=== PATIENT | female | born 1990 | race Caucasian/White ===

== ENCOUNTER 2020-09-24 12:36 | Emergency (ER) | payer OTHER, SELFPAY ==
--- NOTE | 2020-09-24 16:18 | ER ---
Nurse's Notes [facility] Name: Melva Gottlieb Age: 30 yrs Sex: Female : 1990 Arrival Date: 09/24/2020 Time: 12:41 Bed 30 Private MD: Diagnosis: Female pelvic inflammatory disease, unspecified Presentation: 09/24 13:02 Chief complaint: Patient states: Cramping, foul odor to vaginal area with white ll1 discharge for 2 days. States she thinks she may have left a tampon in since her last period at the end of August. No fever. Coronavirus screen: Client denies travel out of the [place] in the last 14 days. At this time, the client does not indicate any symptoms associated with coronavirus-19. Ebola Screen: Patient denies travel to an Ebola-affected area in the 21 days before illness onset. Initial Sepsis Screen: Does the patient meet any 2 criteria? HR > 90 bpm. No. Patient's initial sepsis screen is negative. Does the patient have a suspected source of infection? Yes: Acute abdominal pain. Risk Assessment: Do you want to hurt yourself or someone else? Patient reports no desire to harm self or others. Onset of symptoms was September 23, 2020. 13:02 Method Of Arrival: Ambulatory ll1 13:02 Acuity: SANDRA 4 ll1 Historical: - Allergies: 13:06 Codeine; ll1 13:06 Pineapple; ll1 - PMHx: 13:06 None; ll1 - PSHx: 13:06 Tubal ligation; ll1 - Immunization history:: Flu vaccine is not up to date. - Social history:: Smoking status: Patient reports the use of cigarette tobacco products, smokes one-half pack cigarettes per day. Screenin:19 Abuse screen: Denies threats or abuse. Denies injuries from another. Nutritional iw screening: No deficits noted. Tuberculosis screening: No symptoms or risk factors identified. Fall Risk None identified. Assessment: 15:19 General: Appears in no apparent distress. Behavior is calm, cooperative. Pain: iw Complains of pain in pelvis. Neuro: Level of Consciousness is awake, alert, obeys commands, Oriented to person, place, time, situation. Cardiovascular: Patient's skin is warm and dry. Respiratory: Respiratory effort is even, unlabored, Respiratory pattern is regular. : Reports discharge, from vagina that is white, yellow. Derm: Skin is intact, is healthy with good turgor. Musculoskeletal: Range of motion: intact in all extremities. Vital Signs: 13:02 BP 139 / 58; Pulse 114; Resp 16; Temp 98.3; Pulse Ox 96% ; Weight 92.99 kg; Height 5 ll1 ft. 7 in. (170.18 cm); Pain 7/10; 14:31 BP 124 / 78; Pulse 94; Resp 16; ll1 13:02 Body Mass Index 32.11 (92.99 kg, 170.18 cm) ll1 ED Course: 12:41 Patient arrived in ED. ds1 13:04 Triage completed. ll1 13:06 Arm band placed on. ll1 14:47 Adam Mcpherson PA is PHCP. jr8 14:47 Konrad Schneider MD is Attending Physician. jr8 15:09 Eboni Villareal, RN is Primary Nurse. iw 15:19 Assist provider with pelvic exam: Set up pelvic tray. Performed by Adam IRWIN iw Specimens sent to lab. Patient tolerated well. Patient did not have IV access during this emergency room visit. 15:20 Patient has correct armband on for positive identification. iw Administered Medications: 16:25 Drug: Rocephin (cefTRIAXone) 500 mg Route: IM; Site: left ventrogluteal; iw 16:39 Drug: Zithromax 1 grams Route: PO; iw Outcome: 16:17 Discharge ordered by . jr8 16:41 Discharged to home ambulatory. iw 16:41 Condition: good 16:41 Discharge instructions given to patient, Instructed on discharge instructions, follow up and referral plans. medication usage, Demonstrated understanding of instructions, follow-up care, medications, Prescriptions given X 1. 16:42 Patient left the ED. iw Signatures: Pam Florentino ds1 Eboni Villareal RN RN iw Adam Mcpherson PA PA jr8 Wilma Amezcua RN RN ll1 Corrections: (The following items were deleted from the chart) 13:06 13:06 Social history: Smoking status: Patient denies any tobacco usage or history of. ll1 ll1
--- NOTE | 2020-09-24 16:18 | EDPHYS ---
Physician Documentation [facility] Name: Melva Gottlieb Age: 30 yrs Sex: Female : 1990 Arrival Date: 09/24/2020 Time: 12:41 Bed 30 Private MD: KEVIN Physician Konrad Schneider HPI: 09/24 15:14 This 30 yrs old Female presents to ER via Ambulatory with complaints of jr8 Possible Foreign body In Vagina. 15:14 Onset: The symptoms/episode began/occurred acutely, yesterday. Modifying factors: The jr8 symptoms are alleviated by nothing, the symptoms are aggravated by nothing. Associated signs and symptoms: Pertinent positives: cramping. Severity of symptoms: At their worst the symptoms were mild, in the emergency department the symptoms are unchanged. The patient is sexually active, reportedly has a single partner, does not use protection during intercourse. The patient's method of control includes tubal ligation. The patient has not experienced similar symptoms in the past. The patient has not recently seen a physician. Patient stated that she has been having white discharge and lower abdominal cramping. Smells "mildew" like in her vaginal region. Concerned that she may have forgot a tampon but unsure . Historical: - Allergies: 13:06 Codeine; ll1 13:06 Pineapple; ll1 - PMHx: 13:06 None; ll1 - PSHx: 13:06 Tubal ligation; ll1 - Immunization history:: Flu vaccine is not up to date. - Social history:: Smoking status: Patient reports the use of cigarette tobacco products, smokes one-half pack cigarettes per day. ROS: 15:14 Eyes: Negative for injury, pain, redness, and discharge, ENT: Negative for injury, jr8 pain, and discharge, Neck: Negative for injury, pain, and swelling, Cardiovascular: Negative for chest pain, palpitations, and edema, Respiratory: Negative for shortness of breath, cough, wheezing, and pleuritic chest pain, Abdomen/GI: Negative for abdominal pain, nausea, vomiting, diarrhea, and constipation, Back: Negative for injury and pain, MS/Extremity: Negative for injury and deformity, Skin: Negative for injury, rash, and discoloration, Neuro: Negative for headache, weakness, numbness, tingling, and seizure. 15:14 Constitutional: Negative for fever. 15:14 : Positive for pelvic pain, vaginal discharge. Exam: 15:14 Constitutional: This is a well developed, well nourished patient who is awake, alert, jr8 and in no acute distress. Cardiovascular: Regular rate and rhythm with a normal S1 and S2. No gallops, murmurs, or rubs. Normal PMI, no JVD. No pulse deficits. Respiratory: Lungs have equal breath sounds bilaterally, clear to auscultation and percussion. No rales, rhonchi or wheezes noted. No increased work of breathing, no retractions or nasal flaring. Abdomen/GI: Soft, non-tender, with normal bowel sounds. No distension or tympany. No guarding or rebound. No evidence of tenderness throughout. Back: No spinal tenderness. No costovertebral tenderness. Full range of motion. Skin: Warm, dry with normal turgor. Normal color with no rashes, no lesions, and no evidence of cellulitis. MS/ Extremity: Pulses equal, no cyanosis. Neurovascular intact. Full, normal range of motion. Neuro: Awake and alert, GCS 15, oriented to person, place, time, and situation. Cranial nerves II-XII grossly intact. Motor strength 5/5 in all extremities. Sensory grossly intact. 15:14 : Pelvic Exam: External exam: is normal, no appreciated Bartholin's cyst, no erythema, not excoriated, no evidence of foreign body, no lesions, no ulcerations, no warts seen, Speculum exam: no bleeding is noted, no cervicitis, os that is closed, no tissue in cervix is seen, no tissue in vagina is seen, discharge, white, yellow, the nurse was present for the exam. Vital Signs: 13:02 BP 139 / 58; Pulse 114; Resp 16; Temp 98.3; Pulse Ox 96% ; Weight 92.99 kg; Height 5 ll1 ft. 7 in. (170.18 cm); Pain 7/10; 14:31 BP 124 / 78; Pulse 94; Resp 16; ll1 13:02 Body Mass Index 32.11 (92.99 kg, 170.18 cm) ll1 MDM: 14:47 Patient medically screened. jr8 16:15 Data reviewed: vital signs, nurses notes, lab test result(s). Data interpreted: Pulse jr8 oximetry: on room air is 96 %. Interpretation: normal. Counseling: I had a detailed discussion with the patient and/or guardian regarding: the historical points, exam findings, and any diagnostic results supporting the discharge/admit diagnosis, lab results, the need for outpatient follow up, a family practitioner, to return to the emergency department if symptoms worsen or persist or if there are any questions or concerns that arise at home. ED course: Discussed with patient that there was WBC on wet prep but no other significant finding. Concern for GC with PID based on exam. Will treat as such and needs to f/u with OB or PCP. If worse to come back. No intercourse and significant other needs to be checked as well. Patient good with this . 09/24 15:03 Order name: Wet Prep; Complete Time: 16:14 jr8 09/24 15:03 Order name: GC (GONORR/CHLAMYDIA) Probe jr8 Administered Medications: 16:25 Drug: Rocephin (cefTRIAXone) 500 mg Route: IM; Site: left ventrogluteal; iw 16:39 Drug: Zithromax 1 grams Route: PO; iw Disposition: 09/25 05:43 Co-signature as Attending Physician, Konrad Schneider MD I agree with the assessment and evita plan of care. Disposition: 09/24/20 16:17 Discharged to Home. Impression: Female pelvic inflammatory disease, unspecified. - Condition is Stable. - Discharge Instructions: Cervicitis, Pelvic Inflammatory Disease, Sexually Transmitted Disease. - Prescriptions for Doxycycline Monohydrate 100 mg Oral Tablet - take 1 tablet by ORAL route every 12 hours for 14 days; 28 tablet. - Medication Reconciliation Form, Thank You Letter, Antibiotic Education, Prescription Opioid Use form. - Follow up: Private Physician; When: 5 - 6 days; Reason: Recheck today's complaints, Continuance of care, Re-evaluation by your physician. - Problem is new. - Symptoms are unchanged. Signatures: Dispatcher [employer] Konrad Marie MD MD cha Williams, Irene, RN RN Adam Mcpherson PA PA jr8 Wilma Amezcua RN RN ll1 Corrections: (The following items were deleted from the chart) 09/24 13:06 13:06 Social history: Smoking status: Patient denies any tobacco usage or history of. ll1 ll1 16:42 16:17 09/24/2020 16:17 Discharged to Home. Impression: Female pelvic inflammatory iw disease, unspecified. Condition is Stable. Forms are Medication Reconciliation Form, Thank You Letter, Antibiotic Education, Prescription Opioid Use. Follow up: Private Physician; When: 5 - 6 days; Reason: Recheck today's complaints, Continuance of care, Re-evaluation by your physician. Problem is new. Symptoms are unchanged. jr8
[2020-09-24] MEDS ORDERED: CEFTRIAXONE 500 MG/VIAL ONE (16:41)
[2020-09-24] MEDS ORDERED: AZITHROMYCIN 250 MG TAB ONE (16:41)
[2020-09-24] MEDS ORDERED: LIDOCAINE 1% MPF 5 ML VIAL ONE (16:41)
[2020-09-24 17:14] VITALS: TEMP 98.3; O2SAT 96
[2020-09-24 17:16] VITALS: BP 124/78
[2020-09-27 01:47] LABS: C.trachomatis RNA,TMA Not Detected (Not Detected)
== END 2020-09-24 16:42 | disposition home or self-care (01) ==
LOC: ER 12:36
DX: N73.9 Female pelvic inflammatory disease, unspecified (principal); F17.210 Nicotine dependence, cigarettes, uncomplicated; Z88.5 Allergy status to narcotic agent; Z91.018 Allergy to other foods
CPT/HCPCS: 87210; 87490; 87590; 96372; 99284; J0696